=== PATIENT | female | born 1975 | race Caucasian/White ===

== ENCOUNTER 2017-05-01 15:05 | Emergency (ER) | payer MEDICAID, OTHER ==
[2017-05-01] MEDS ORDERED: LIDOCAINE 2% 10 ML MDV ONE (15:42)
--- NOTE | 2017-05-01 16:19 | XRAY Preliminary Report ---
Exam: XR HAND 3 VIEW LT IMPRESSION: No evidence of fracture or dislocation. No radiopaque foreign body. [facility] SITE ID: [id number]
--- NOTE | 2017-05-01 16:21 | XRAY Report ---
EXAM: LEFT HAND RADIOGRAPHY EXAM DATE: 05/01/2017 03:52 PM. CLINICAL HISTORY: Trauma and pain . COMPARISON: None. T TECHNIQUE: 3 views. FINDINGS: Bones: No fracture or focal bony lesion. Joints: No evidence of dislocation. Soft Tissues: There is a third digit soft tissue defect. No unexpected radiopaque foreign body. IMPRESSION: No evidence of fracture or dislocation. No radiopaque foreign body. [facility] Referring Provider Line: [phone] SITE ID: [id number]
[2017-05-01] MEDS ORDERED: LIDOCAINE 1% 2 ML VIAL ONE (17:09)
--- NOTE | 2017-05-01 17:56 | ED Physician Documentation ---
History of Present Illness - Stated complaint Stated Complaint: L HAND FINGERS LAC - Chief complaint Chief Complaint: Laceration - History obtained from History obtained from: Patient (RHD female with cuts to her left hand after she cut it at work on a mandolin. Pt is UTD on Td.) Review of Systems Skin: reports: Laceration (s) (left hand) Musculoskeletal: reports: Other (left hand pain) Neurologic: reports: Other (tingling to left hand/fingers) PD PAST MEDICAL HISTORY - Past Surgical History Past Surgical History: No - Present Medications Home Medications: Ambulatory Orders Medication Instructions Recorded Confirmed Acyclovir 800 mg PO 5XD #50 tablet 10/25/14 05/01/17 Cephalexin [Keflex] 500 mg PO QID 7 Days capsule 10/25/14 05/01/17 Hydrocodone/Acetaminophen 1 - 2 each PO Q6H PRN #15 tablet 10/25/14 05/01/17 [Hydrocodon-Acetaminophen 5-325] predniSONE [Deltasone] 60 mg PO DAILY 5 Days tablet 10/25/14 05/01/17 - Allergies Allergies/Adverse Reactions: Allergies Allergy/AdvReac Type Severity Reaction Status Date / Time latex Allergy Rash Verified 05/01/17 15:11 Penicillins Allergy Unknown Verified 10/25/14 15:04 - Social History Does the pt smoke?: Yes Smoking Status: Current every day smoker Does the pt drink ETOH?: Yes Does the pt have substance abuse?: No - Immunizations Immunizations are current?: Yes - POLST Patient has POLST: No PD ED PE NORMAL - Vitals Vital signs reviewed: Yes - General General: Alert and oriented X 3, No acute distress - Cardiac Cardiac: Strong equal pulses (radial ) - Derm Derm: Other (pt with finger tip pad avusion to the left index finger. has pad laceration to the pad of the ring finger of the left hand nd laceration to the pad of the ring finger of the left hand. oozing. ) - Extremities Extremities: Other (lacerations to the pads of the index, middle and ring fingers. full ROM of the PIP and DIP and MCP of those fingers. ) - Neuro Neuro: Other (sensation intact to tlight touch to the left fingers) Results - Vitals Vitals: Vital Signs - 24 hr 05/01/17 15:11 Temperature 36.2 C L Heart Rate 84 Respiratory 20 Rate Blood Pressure 139/87 H O2 Saturation 100 Oxygen O2 Source Room air - Rads (name of study) hand x-ray Radiology: Final report received, Other (fracture or dislocation ) Procedures - Laceration (location) left hand Length in cm: 2 Wound type: Linear Neurovascular status: Sensory intact, Motor intact Tendon involvement: Tendon intact Anesthesia: Lidocaine 1% Wound Preparation: Irrigated copiously NS, Debrided moderately, Wound explored Skin layer closure: Nylon, Interrupted, Sutures - enter # (7) Other: Patient tolerated well, No complications, Neurovascular intact, Dressing applied Complexity: Simple left ring finger Length in cm: 2 Wound type: Linear Neurovascular status: Sensory intact, Motor intact, Vascular intact Anesthesia: Lidocaine 1% Wound Preparation: Irrigated copiously NS Skin layer closure: Nylon, Sutures - enter # Other: Patient tolerated well, No complications Complexity: Simple PD MEDICAL DECISION MAKING - ED course Complexity details: d/w patient ED course: pt with avulsion of the pad of her left index finger. there is nothing to suture. bandage placed. bone is not exposed. pt has full ROm of the DIP joint. The index finger and ring finger pads were closed. no bone exposed and tendons intact. pt was UTD on Td. informed pt that the skin that was sutured may not survive and that this may just be to cover the skin under. She expressed understanding. pt was given bandages. Departure - Departure Disposition: 01 Home, Self Care Clinical Impression: Laceration Condition: Good Instructions: ED Laceration Hand Follow-Up: Jeimy Castro ARNP [Primary Care Provider] - Comments: keep the bandages on for the next 24 hours then you may remove them. keep the wounds covered. you may wash your hands as normal. the skin that had stitches placed may not survive this injury. The stitches need to be removed in 10 days. Return to the ER for any new or worsening symptoms. Forms: Activity restrictions
[2017-05-01 18:25] VITALS: BP 126/79
== END 2017-05-01 18:18 | disposition home or self-care (01) ==
LOC: ED 15:05
DX: S61.412A Laceration without foreign body of left hand, initial encounter (principal); S61.211A Laceration without foreign body of left index finger without damage to nail, initial encounter; S61.213A Laceration without foreign body of left middle finger without damage to nail, initial encounter; S61.215A Laceration without foreign body of left ring finger without damage to nail, initial encounter; W45.8XXA Other foreign body or object entering through skin, initial encounter; Y92.89 Other specified places as the place of occurrence of the external cause; Y99.0 Civilian activity done for income or pay; F17.200 Nicotine dependence, unspecified, uncomplicated
CPT/HCPCS: 1040M; 12002; 73130; 99283

== ENCOUNTER 2021-03-01 08:00 | Outpatient (CLI) | payer MEDICAID ==
--- NOTE | 2021-03-01 10:03 | XRAY Report ---
PROCEDURE: Chest 2 View X-Ray INDICATIONS: Chest congestion TECHNIQUE: 2 view(s) of the chest. COMPARISON: None. FINDINGS: Surgical changes and devices: None. Lungs and pleura: No pleural effusions or pneumothorax. Lungs are clear. Mediastinum: Mediastinal contours are normal. Heart size is normal. Bones and chest wall: No suspicious bony abnormalities. Soft tissues appear unremarkable. IMPRESSION: No acute cardiopulmonary process demonstrated radiographically. Reviewed by: Feroz Mchugh MD on 03/01/2021 10:02 AM PDT Approved by: Feroz Mchugh MD on 03/01/2021 10:02 AM PDT Station ID: [id number]
== END 2021-03-01 08:01 ==
LOC: DI.S 08:00
PROVIDERS: ATTEND Physician Assistant Medical
DX: R09.89 Other specified symptoms and signs involving the circulatory and respiratory systems (principal)

== ENCOUNTER 2021-08-05 08:00 | Outpatient (CLI) | payer MEDICAID ==
[2021-08-05 14:18] LABS: BILIRUBIN,URINE NEGATIVE (NEGATIVE); GLUCOSE, URINE (UA) NEGATIVE (NEGATIVE); KETONES,URINE (UA) NEGATIVE (NEGATIVE); LEUKOCYTE ESTERASE, URINE NEGATIVE (NEGATIVE); NITRITE,URINE NEGATIVE (NEGATIVE); OCCULT BLOOD,URINE SMALL (NEGATIVE); PH,URINE 7.5 PH (5.0-7.5); PROTEIN,URINE NEGATIVE (NEGATIVE); UROBILINOGEN,URINE 0.2 (NORMAL) E.U./dL (NORMAL)
[2021-08-05 14:19] LABS: CLARITY,URINE CLEAR (CLEAR)
[2021-08-05 14:26] LABS: BACTERIA,URINE Rare /HPF (None Seen); RBC,URINE 0-5 /HPF (0-5); SQUAMOUS EPITHELIAL CELL,UR RARE Squamous (<= Few); WBC,URINE 0-3 /HPF (0-5)
== END 2021-08-05 23:59 ==
LOC: LAB.S 08:00
PROVIDERS: ATTEND Emergency Medicine
DX: R30.0 Dysuria (principal)
CPT/HCPCS: 81001; 87086

== ENCOUNTER 2021-08-21 09:09 | Outpatient (CLI) | payer MEDICAID ==
[2021-08-21 15:19] LABS: BASOPHILS # (AUTO) 0.1 10^3/uL (0.0-0.1); BASOPHILS % (AUTO) 0.8 %; EOSINOPHILS # (AUTO) 0.1 10^3/uL (0.0-0.7); HCT - HEMATOCRIT 43.7 % (37.0-47.0); HGB - HEMOGLOBIN 13.9 g/dL (12.0-16.0); LYMPHOCYTES # (AUTO) 2.9 10^3/uL (1.5-3.5); LYMPHOCYTES % (AUTO) 23.9 %; MEAN CORPUSCULAR HEMOGLOBIN 28.5 pg (27.0-31.0); MEAN CORPUSCULAR HGB CONC 31.8 g/dL (32.0-36.0); MEAN CORPUSCULAR VOLUME 89.5 fL (81.0-99.0); MEAN PLATELET VOLUME 11.2 fL (7.9-10.8); MONOCYTES # (AUTO) 1.1 10^3/uL (0.0-1.0); MONOCYTES % (AUTO) 9.4 %; NEUTROPHILS # (AUTO) 7.7 10^3/uL (1.5-6.6); NEUTROPHILS % (AUTO) 63.5 %; PLT - PLATELET COUNT 291 10^3/uL (130-450); RED BLOOD COUNT 4.88 10^6/uL (4.20-5.40); RED CELL DISTRIBUTION WIDTH 13.7 % (12.0-15.0); WHITE BLOOD COUNT 12.1 x10^3/uL (4.8-10.8)
[2021-08-21 15:54] LABS: ALBUMIN 3.4 g/dL (3.2-5.5); ALKALINE PHOSPHATASE 68 IU/L (42-121); ALT ALANINE AMINOTRANSFERASE 11 IU/L (10-60); AST ASPARTATE AMINOTRANSFERASE 17 IU/L (10-42); BILIRUBIN,TOTAL 0.4 mg/dL (0.2-1.0); BUN - BLOOD UREA NITROGEN 12 mg/dL (6-20); CALCIUM 9.1 mg/dL (8.5-10.3); CARBON DIOXIDE - CO2 28 mmol/L (21-32); CHLORIDE 99 mmol/L (101-111); CHOL/HDL RATIO 4.6 (<4.4); CHOLESTEROL 176 mg/dL; CREATININE 0.7 mg/dL (0.4-1.0); GFR - MDRD 90 (>89); GLUCOSE 122 mg/dL (70-100); HDL CHOLESTEROL 38 mg/dL; LDL CHOLESTEROL,CALCULATED 102 mg/dL; LDL/HDL RATIO 2.7 (<4.4); POTASSIUM 4.2 mmol/L (3.5-5.0); SODIUM 135 mmol/L (135-145); TOTAL PROTEIN 6.8 g/dL (6.7-8.2); TRIGLYCERIDES 182 mg/dL; VLDL CHOLESTEROL 36 mg/dL
[2021-08-21 16:59] LABS: THYROID STIMULATING HORMONE 2.36 uIU/mL (0.34-5.60)
== END 2021-08-21 09:10 | disposition home or self-care (01) ==
LOC: LAB.S 09:09
PROVIDERS: ATTEND Registered Nurse
DX: Z13.228 Encounter for screening for other metabolic disorders (principal); Z13.220 Encounter for screening for lipoid disorders; Z83.79 Family history of other diseases of the digestive system; Z13.29 Encounter for screening for other suspected endocrine disorder; Z13.0 Encounter for screening for diseases of the blood and blood-forming organs and certain disorders involving the immune mechanism
CPT/HCPCS: 36415; 80050; 80061; 82607; 83721

== ENCOUNTER 2021-10-20 07:56 | Outpatient (CLI) | payer MEDICAID ==
[2021-10-20 14:08] LABS: BASOPHILS # (AUTO) 0.1 10^3/uL (0.0-0.1); BASOPHILS % (AUTO) 0.6 %; EOSINOPHILS # (AUTO) 0.1 10^3/uL (0.0-0.7); HCT - HEMATOCRIT 45.8 % (37.0-47.0); HGB - HEMOGLOBIN 14.1 g/dL (12.0-16.0); LYMPHOCYTES # (AUTO) 3.3 10^3/uL (1.5-3.5); LYMPHOCYTES % (AUTO) 28.4 %; MEAN CORPUSCULAR HEMOGLOBIN 27.9 pg (27.0-31.0); MEAN CORPUSCULAR HGB CONC 30.8 g/dL (32.0-36.0); MEAN CORPUSCULAR VOLUME 90.7 fL (81.0-99.0); MONOCYTES % (AUTO) 8.7 %; NEUTROPHILS # (AUTO) 6.8 10^3/uL (1.5-6.6); NEUTROPHILS % (AUTO) 59.7 %; PLT - PLATELET COUNT 300 10^3/uL (130-450); RED BLOOD COUNT 5.05 10^6/uL (4.20-5.40); RED CELL DISTRIBUTION WIDTH 14.4 % (12.0-15.0); WHITE BLOOD COUNT 11.5 x10^3/uL (4.8-10.8)
[2021-10-20 14:16] LABS: CALCIUM 9.1 mg/dL (8.5-10.3); CREATININE 0.7 mg/dL (0.4-1.0); POTASSIUM 4.3 mmol/L (3.5-5.0)
[2021-10-20 20:56] LABS: ESTIMATED AVERAGE GLUCOSE 143 mg/dL (70-100); HEMOGLOBIN A1c% 6.6 % (4.27-6.07)
== END 2021-10-20 07:57 | disposition home or self-care (01) ==
LOC: LAB.S 07:56
PROVIDERS: ATTEND Registered Nurse
DX: R73.01 Impaired fasting glucose (principal)
CPT/HCPCS: 36415; 80048; 83036; 85025